=== PATIENT | female | born 1995 | race Caucasian/White ===

== ENCOUNTER 2024-04-20 21:18 | Outpatient (CLI) | payer OTHER ==
[2024-04-20 22:35] VITALS: BP 121/74; PULSE 109; RESP 15; TEMP 96.4
== END 2024-04-20 22:03 | disposition home or self-care (01) ==
LOC: FBPOP 21:18
PROVIDERS: ATTEND Obstetrics & Gynecology
DX: Z53.9 Procedure and treatment not carried out, unspecified reason (principal)
CPT/HCPCS: 59025; G0463; 99213

== ENCOUNTER 2024-04-27 03:07 | Inpatient (IN) | payer OTHER ==
[2024-04-27] MEDS ORDERED: miSOPROStoL 200 MCG TAB RECTAL PRN (04:47)
[2024-04-27] MEDS ORDERED: OXYTOCIN 10 UNIT/ML 1 ML VIAL IM PRN (04:47)
[2024-04-27] MEDS ORDERED: METHYLERGONOVINE 0.2 MG/ML 1 ML AMP IM PRN (04:47)
[2024-04-27] MEDS ORDERED: LIDOCAINE 0.5% (PF) 5 MG/ML (50 ML SDV) SQ PRN (04:47)
[2024-04-27] MEDS ORDERED: TERBUTALINE 1 MG/ML VIAL SQ PRN (04:47)
[2024-04-27] MEDS ORDERED: CARBOPROST TROMETHAMINE 250 MCG/ML 1 ML AMP IM PRN (04:47)
[2024-04-27] MEDS ORDERED: miSOPROStoL 200 MCG TAB PO PRN (04:47)
[2024-04-27] MEDS ORDERED: TRANEXAMIC 1,000 MG/100ML-NACL 1,000 MG in EMPTY BAG 1 BAG IV PRN (04:47)
[2024-04-27] MEDS: LACTATED RINGERS 1,000 ML IV SCH (05:10)
[2024-04-27] MEDS: OXYTOCIN 30 UNITS/500 ML NS 30 UNIT in SALINE 1 500ML.BAG IV SCH (05:22)
[2024-04-27 05:25] LABS: Basophils % (A) 0 %; Eosinophils # (A) 0.1 k/uL (0-0.7); Eosinophils % (A) 1 %; HCT 34.8 % (34.0-46.0); HGB 11.4 gm/dL (11.4-16.0); Lymphocytes # (A) 1.7 k/uL (1.0-4.8); Lymphocytes % (A) 17 %; MCH 28.4 pg (25.0-35.0); MCHC 32.8 g/dL (31.0-37.0); MCV 86.7 fL (80.0-100.0); Mean Platelet Volume 7.4; Monocytes # (A) 0.8 k/uL (0-1.0); Monocytes % (A) 8 %; Neutrophils # (A) 7.2 k/uL (1.3-7.7); Neutrophils % (A) 72 %; Platelet Count 251 k/uL (150-450); RBC 4.01 m/uL (3.80-5.40)
[2024-04-27 06:52] VITALS: RESP 16
--- NOTE | 2024-04-27 10:44 | P.HPOB ---
History of Present Illness H&P Date: 04/27/24 Chief Complaint: IUP at 39 and 1 sevenths weeks, SROM This is a 29-year-old 5 para 0-0-4-0 at 39 and 1 sevenths weeks that presented to labor and delivery with complaints of rupture of membranes around 220. Patient states fluid was clear in nature. Patient has been receiving routine care which has been complicated by diagnosis of polyhydramnios. On blood work this patient is about type of O+, rubella status immune, hepatitis B surface engine negative, HIV negative, RPR is nonreactive, group beta strep cultures negative. Review of Systems Constitutional: Denies chills, Denies fatigue, Denies fever Ears, nose, mouth and throat: Denies headache Cardiovascular: Reports leg edema Respiratory: Denies dyspnea Gastrointestinal: Denies constipation, Denies diarrhea, Denies nausea, Denies vomiting Genitourinary: Reports Past Medical History Past Medical History: No Reported History History of Any Multi-Drug Resistant Organisms: None Reported Past Surgical History: Adenoidectomy, Tonsillectomy Additional Past Surgical History / Comment(s): Lymph node removal, hematoma removal Past Anesthesia/Blood Transfusion Reactions: No Reported Reaction Smoking Status: Never smoker Medications and Allergies Home Medications Medication Instructions Recorded Confirmed Type Vit No.179/Iron/Folic 1 tab PO DAILY 04/06/24 04/20/24 History [ Tablet] QUEtiapine FUMARATE [SEROquel] 300 mg PO HS 04/06/24 04/20/24 History Sertraline [Zoloft] 100 mg PO DAILY 04/06/24 04/20/24 History Allergies Allergy/AdvReac Type Severity Reaction Status Date / Time No Known Allergies Allergy Verified 04/27/24 03:34 Exam Osteopathic Statement: *. No significant issues noted on an osteopathic structural exam other than those noted in the History and Physical/Consult. Vital Signs Temp Pulse Resp BP 04/27/24 06:48 96.5 F L 110 H 16 118/71 Intake and Output 04/26/24 04/27/24 04/27/24 22:59 06:59 14:59 Intake Total 600 Balance 600 Intake: Oral 600 Other: Weight 95.254 kg Targeted physical exam is performed this date General Is well-nourished well- developed female in no acute distress, breathing is nonlabored, heart has a regular rhythm, abdomen is gravid, on cervical exam she is 1-2/70/-3, amniotomy is performed and copious clear fluid is obtained. heart tones are noted to be category 1 and she is prem every 2 to 4 minutes Results Result Diagrams: 04/27/24 05:05 Assessment and Plan (1) Term Current Visit: Yes Status: Acute Code(s): Z34.90 - ENCNTR FOR SUPRVSN OF NORMAL , UNSP, UNSP TRIMESTER SNOMED Code(s): 91383481 (2) Polyhydramnios Current Visit: Yes Status: Acute Code(s): O40.9XX0 - POLYHYDRAMNIOS, UNSP TRIMESTER, NOT APPLICABLE OR UNSP SNOMED Code(s): 25237179 (3) Spontaneous rupture of membranes Current Visit: Yes Status: Acute Code(s): NBE7297 - SNOMED Code(s): 394466248 Plan: 29-year-old 5 para 0-0-4-0 at 39 and 1 sevenths weeks that presents to labor and delivery with complaints of spontaneous rupture of membranes. Patient was admitted to labor and delivery through the night, on exam this morning forebag was appreciated and ruptured, copious fluid was obtained. Will continue Pitocin for augmentation of labor. Analgesia is discussed with patient including epidural, nitrous, Nubain. Patient will consider.
[2024-04-27] MEDS: BUTORPHANOL 1 MG/ML 1 ML VIAL IV PRN (12:03)
[2024-04-27] MEDS ORDERED: SODIUM CHLORIDE 0.9% 250 ML BAG ONE (13:41)
[2024-04-27] MEDS ORDERED: fentaNYL (PF) 50 MCG/ML 5 ML AMP ONE (13:41)
[2024-04-27] MEDS ORDERED: ROPIVACAINE 5 MG/ML 30 ML VIAL ONE (13:41)
[2024-04-27] MEDS: AMPICILLIN 2,000 MG in SODIUM CHLORIDE 0.9% 100 ML IVPB STA (17:24)
[2024-04-27] MEDS: ACETAMINOPHEN IV (For NPO) 1,000 MG in EMPTY BAG 1 BAG IVPB STA (20:41)
[2024-04-27] MEDS: CITRIC ACID-SODIUM CITRATE 15 ML CUP PO ONE (20:41)
[2024-04-27] MEDS ORDERED: MORPHINE SULFATE (PF) 0.3 MG/0.3 ML SYR ONE (21:20)
[2024-04-27] MEDS ORDERED: OXYTOCIN 10 UNIT/ML 1 ML VIAL ONE (21:20)
[2024-04-27] MEDS ORDERED: ONDANSETRON 4 MG/2 ML VIAL ONE (21:20)
[2024-04-27] MEDS ORDERED: ZOLPIDEM 5 MG TAB PO PRN (22:14)
[2024-04-27] MEDS ORDERED: NALOXONE 0.4 MG/ML 1 ML VIAL IV PRN (22:14)
[2024-04-27] MEDS ORDERED: diphenhydrAMINE 25 MG CAP PO PRN (22:14)
[2024-04-27] MEDS ORDERED: ONDANSETRON 4 MG/2 ML VIAL IVP PRN (22:14)
[2024-04-27] MEDS ORDERED: diphenhydrAMINE 50 MG/ML 1 ML VIAL IVP PRN ×2 (22:14)
[2024-04-27] MEDS ORDERED: SIMETHICONE 80 MG CHEWABLE PO PRN (22:14)
[2024-04-27] MEDS ORDERED: diphenhydrAMINE 50 MG CAP PO PRN (22:14)
[2024-04-27] MEDS ORDERED: METOCLOPRAMIDE 5 MG/ML 2 ML VIAL IVP PRN (22:14)
--- NOTE | 2024-04-27 22:22 | P.OP ---
Date of Procedure: 04/27/24 Preoperative Diagnosis: IUP at 39 weeks, spontaneous rupture of membranes, polyhydramnios, maternal fever, arrest of dilation Postoperative Diagnosis: Same Procedure(s) Performed: Primary low-transverse section Anesthesia: spinal Surgeon: Huma Montano Resource Paraprofessional #1: Shiva Steiner Estimated Blood Loss (ml): 840 IV fluids (ml): 1,000 Urine output (ml): 300 (Concentrated urine) Pathology: other (Placenta) Condition: stable Disposition: PACU Indications for Procedure: 29-year-old 5 para 0-0-4-0 at 39 weeks that presented early this morning with complaints of spontaneous rupture of membranes around 220. Patient had confirmed rupture of membranes and OB triage. Patient was admitted and Pitocin augmentation of labor was begun approximately 3 hours later. Patient was examined this morning forebag was appreciated and rupture of membranes was completed with copious clear fluid appreciated. Patient has made slow progress through the day stalling at 5 to 6 cm. Patient has noted fever given remoteness from delivery, and prolonged rupture of membrane she is counseled on need for primary low-transverse section. Questions are answered and patient agrees with plan of care. Anesthesia into see patient Operative Findings: viable female infant delivered at 2141, weight of 7 pounds 14 ounces, normal uterus tubes and ovaries were appreciated Description of Procedure: The patient was prepped and draped in the usual fashion after spinal anesthesia was found to be adequate by the anesthesia department. A Pfannenstiel incision was made and extended of the abdominal cavity without difficulty. The bladder peritoneum was elevated and incised and reflected distally. A 2 cm incision was made in the transverse plane of the lower uterine segment to enter the uterus at which time clear fluid was noted. The incision was extended in both directions using the bandage scissors. The head was encountered within the field and delivered up and through the incision where the nose and mouth were thoroughly suctioned. Remainder of the infant was delivered onto the surgical field where the cord was doubly clamped, cut, and the was passed for resuscitative measures with weight and Apgars as noted above. The placenta was delivered manually, intact, and was grossly normal with a grossly normal three-vessel cord. The uterus was exteriorized and the interior cavity of the uterus swept of any remaining placental and membranous fragments with a laparotomy sponge. The margins of the incision were grasped with Allis clamps and the incision closed in 2 layers. First layer was a running locking layer of 0 chromic catgut from margin to margin followed by a second layer of imbricating 0 chromic catgut from margin to margin. Bleeding was appreciated in the midportion of the hysterotomy incision therefore a [id number] suture was used to obtain hemostasis. Once hemostasis was achieved, the posterior cul-de-sac was suctioned with a guard and the uterine and ovarian findings are as noted above. The uterus was replaced within the abdominal cavity and the gutters swept of any remaining blood fluid or clot. The incision was again reexamined and hemostasis was noted to be excellent. Any small point of bleeding were made hemostatic with the Bovie. Once hemostasis was achieved the parietal peritoneum was loosely reapproximated. The layer of muscles were examined and made hemostatic with the Bovie. Attention was then turned to the fascia which was closed with 0 Vicryl in a running fashion from 1 lateral edge to the other. The subcutaneous tissues were irrigated, made hemostatic with the Bovie, and reapproximated with a running stitch of 30 plain catgut. The skin was reapproximated with 4-0 Vicryl. Estimated blood loss for the case was approximately 840 mL. All sponge instrument and needle counts are correct. There were no complications. The patient tolerated the procedure well and proceeded to the recovery room in stable condition. Both mother and infant are resting comfortably in recovery.
[2024-04-27] MEDS: AMPICILLIN 1,000 MG in SODIUM CHLORIDE 0.9% 50 ML IVPB SCH (23:04)
[2024-04-27] MEDS: QUEtiapine 100 MG TAB PO SCH (23:18)
[2024-04-27] MEDS: SERTRALINE 100 MG TAB PO SCH (23:59)
[2024-04-28] MEDS: ACETAMINOPHEN TAB 500 MG TAB PO SCH (00:15)
[2024-04-28] MEDS: IBUPROFEN 800 MG TAB PO SCH (01:37)
[2024-04-28] MEDS: LACTATED RINGERS 1,000 ML IV SCH (02:12)
[2024-04-28 07:11] LABS: Basophils % (A) 0 %; Eosinophils # (A) 0.1 k/uL (0-0.7); Eosinophils % (A) 1 %; HCT 35.1 % (34.0-46.0); HGB 11.6 gm/dL (11.4-16.0); Lymphocytes # (A) 1.7 k/uL (1.0-4.8); Lymphocytes % (A) 10 %; MCH 29.1 pg (25.0-35.0); Mean Platelet Volume 8.4; Monocytes % (A) 6 %; Neutrophils # (A) 13.3 k/uL (1.3-7.7); Neutrophils % (A) 82 %; Platelet Count 250 k/uL (150-450); RBC 3.99 m/uL (3.80-5.40); RDW 13.3 % (11.5-15.5); WBC 16.3 k/uL (3.8-10.6)
[2024-04-28] MEDS ORDERED: SERTRALINE 100 MG TAB PO SCH (09:00)
--- NOTE | 2024-04-28 09:24 | P.PN ---
Progress Note - Text 04/28/23 839AM 29-year-old female status post with spinal Duramorph. Patient seen and evaluated for postop pain control she has a VAS of 2 with no complaints of nausea vomiting or pruritus
--- NOTE | 2024-04-28 11:51 | P.PNOBGPC ---
Subjective - Subjective Patient reports: Reports appetite normal, Reports voiding normally, Reports pain well controlled, Reports ambulating normally : doing well, nursing well Objective - Vital Signs Latest vital signs: Vital Signs Temp Pulse Resp BP Pulse Ox 04/28/24 08:00 98.3 F 95 16 104/70 100 04/28/24 04:00 98.6 F 90 16 122/66 04/28/24 00:17 98.4 F 97 16 114/69 99 04/28/24 00:01 93 16 122/59 97 04/27/24 23:44 90 16 117/62 98 04/27/24 23:32 109 H 16 115/57 97 04/27/24 23:17 95 16 108/55 98 04/27/24 23:02 92 16 119/56 97 04/27/24 22:47 95 16 118/58 97 04/27/24 22:32 99 16 126/56 97 04/27/24 22:17 97.6 F 103 H 16 140/58 95 Intake and Output 04/27/24 04/28/24 04/28/24 22:59 06:59 14:59 Intake Total 35.1 600 Output Total 840 1370 Balance -804.9 -770 Intake: Intake, IV Titration 35.1 Amount Oxytocin 30 Units/500 ml 35.1 Ns 30 unit In Saline 1 500ml.bag @ Per Protocol IV .Q0M [facility] Rx#:[id number] Oral 600 Output: Urine 1250 Uretheral (Lee) 850 Output, Quantitative 840 120 Blood Loss Other: Voiding Method Indwelling Catheter - Exam Extremities: Present: normal Abdomen: Present: normal appearance, soft. Absent: distention, tenderness Incision: Present: normal, dry, intact Uterus: Present: normal, firm (Uterine fundus is tonic and minimally tender around the umbilicus.) - Labs Labs: Abnormal Lab Results - Last 24 Hours (Table) 04/28/24 Range/Units 06:02 WBC 16.3 H (3.8-10.6) k/uL Neutrophils # 13.3 H (1.3-7.7) k/uL Assessment and Plan (1) Status post section Current Visit: Yes Status: Acute Code(s): Z98.891 - HISTORY OF UTERINE SCAR FROM PREVIOUS SURGERY SNOMED Code(s): 066908780 Plan: Continue routine and postoperative care. I have encouraged the patient ambulate in the hallways routinely today. I would anticipate discharge home tomorrow pending no complications.
[2024-04-28] MEDS: SENNOSIDES-DOCUSATE SODIUM 1 EACH TAB PO SCH (13:00)
[2024-04-28] MEDS: PRENATAL VIT-IRON-FOLIC ACID 1 EACH TABLET PO SCH (15:16)
[2024-04-29] MEDS ORDERED: IBUPROFEN 800 MG TAB PO SCH
[2024-04-29 10:03] VITALS: BP 100/62; PULSE 88; TEMP 98.2
--- NOTE | 2024-04-29 10:42 | P.DS ---
Providers Date of admission: 04/27/24 03:46 Expected date of discharge: 04/29/24 Attending physician: Huma Montano Primary care physician: Stated None - Discharge Diagnosis(es) (1) Status post section Current Visit: Yes Status: Acute Hospital Course: The patient is a 29-year-old 5 para 0-0-4-0 admitted at 39 and 1 sevenths weeks who presented to labor and delivery with documented spontaneous rupture of membranes for clear fluid. Her has been uncomplicated aside from a diagnosis of polyhydramnios. On labor and delivery, all signs are reassuring with a category 1 heart rate tracing. She had an epidural catheter placed for analgesia and Pitocin augmentation started. She labored for quite some time and progressed to approximately 6 cm where she remained for several hours. She began to develop some low-grade temperatures and some occasional category 2 heart rate tracings were noted. After discussion wi th the patient, the patient agreed to undergo primary low-transverse section. She was taken to the operating room where she was delivered of a viable 7 pound 14 ounce baby girl with Apgars of 9 at 1 minute and 9 at 5 minutes. Her course was unremarkable with vital signs remaining stable and her temperature was afebrile throughout. She was deemed stable for discharge by and postoperative day #2. She was discharged home to follow-up in the office in 2 weeks for an incision check in 6 weeks routinely. Discharge instructions included calling for any significantly increased bleeding or foul-smelling lochia, significantly increased fever or abdominal pain, perineal complaints, breast complaints, incisional complaints, or anything else that concerned her. She was additionally instructed to have nothing in the vagina for at least 6 weeks time to include intercourse. She was to do no heavy lifting over the same period of time. She was lastly instructed to do no driving until off of all pain medications or 2 weeks time, whichever came first. She understood her instructions and agrees to follow-up as noted above. Discharge medications included continued vitamins as she has opted to breast-feed. She was otherwise to use [id number] analgesic pain medications as needed. She was provided a prescription for oxycodone 5 mg, 1-2 p.o. every 6 hours as needed pain, #20 dispensed with no refills. Maternal blood type is O+ and rubella status is immune. Discharge hemoglobin and hematocrit were 11.6 and 35.1 respectively. Procedures: 1. Pitocin augmentation #2. Epidural analgesia #3. Antibiotic prophylaxis #4. Primary low-transverse section Patient Condition at Discharge: Stable Plan - Discharge Summary New Discharge Prescriptions: No Action Sertraline [Zoloft] 100 mg PO DAILY QUEtiapine FUMARATE [SEROquel] 300 mg PO HS Vit No.179/Iron/Folic [ Tablet] 1 tab PO DAILY Discharge Medication List Vit No.179/Iron/Folic [ Tablet] 1 tab PO DAILY 04/06/24 [History] QUEtiapine FUMARATE [SEROquel] 300 mg PO HS 04/06/24 [History] Sertraline [Zoloft] 100 mg PO DAILY 04/06/24 [History] Follow up Appointment(s)/Referral(s): Huma Montano DO [Doctor of Osteopathic Medicine] - 2 Weeks Discharge Disposition: HOME SELF-CARE
== END 2024-04-29 12:35 | disposition home or self-care (01) | DRG 540 ==
LOC: FBPOP 03:07 → 4FBP 03:46
PROVIDERS: ADMIT Obstetrics & Gynecology; ATTEND Obstetrics & Gynecology Obstetrics
PROC: 10D00Z1 Extraction of Products of Conception, Low, Open Approach (ICD-10-PCS; principal; 2024-04-27 21:30)
DX: O40.3XX0 Polyhydramnios, third trimester, not applicable or unspecified (principal); O62.0 Primary inadequate contractions; O75.2 Pyrexia during labor, not elsewhere classified; Z37.0 Single live birth; Z3A.39 39 weeks gestation of pregnancy; Z79.899 Other long term (current) drug therapy
CPT/HCPCS: 59025; 84112; 85025; 86850; 86900; 86901; 99213